=== PATIENT | female | born 1985 | race African-American/Black ===

== ENCOUNTER 2017-10-12 04:06 | Emergency (ER) | payer SELFPAY ==
[~2017-10-12] VITALS: Ht 172.7 cm; Wt 63.6 kg
[2017-10-12] MEDS ORDERED: PEN-VEE K,VEET500 MG PO (04:32)
[2017-10-12] MEDS ORDERED: LIDOCAINE20 MG/1 M5 PO (04:32)
[2017-10-12] MEDS ORDERED: INDOCIN50 MG PO (04:32)
[2017-10-12] MEDS ORDERED: ULTRAM50 MG PO (04:32)
[2017-10-12 04:59] VITALS: BP 129/91
== END 2017-10-12 04:59 | disposition home or self-care (01) ==
LOC: EME 04:06
DX: K04.7 Periapical abscess without sinus (principal); K02.9 Dental caries, unspecified; F17.200 Nicotine dependence, unspecified, uncomplicated
CPT/HCPCS: 99281; 99284

== ENCOUNTER 2017-10-19 10:03 | Emergency (ER) | payer SELFPAY ==
[~2017-10-19] VITALS: Ht 172.7 cm; Wt 66.9 kg
[~2017-10-19 10:03] MED LIST: INDOCIN50 MG PO; LIDOCAINE20 MG/1 M5 PO; PEN-VEE K,VEET500 MG PO; ULTRAM50 MG PO
[2017-10-19] MEDS ORDERED: CLEOCIN300 MG PO (11:18)
[2017-10-19] MEDS ORDERED: ULTRAM50 MG PO (11:18)
[2017-10-19 11:28] VITALS: BP 145/93
== END 2017-10-19 11:31 | disposition home or self-care (01) ==
LOC: EME 10:03
DX: K08.89 Other specified disorders of teeth and supporting structures (principal)
CPT/HCPCS: 99281; 99283